=== PATIENT | female | born 1965 | race Caucasian/White ===

== ENCOUNTER 2020-02-22 20:29 | Observation (INO) | payer OTHER ==
[~2020-02-22] VITALS: Ht 162.6 cm; Wt 74.8 kg
[2020-02-22 20:50] VITALS: BP 129/67
--- NOTE | 2020-02-22 21:01 | NUR ---
PT TAKEN TO BED 11 WITH STEADY GAIT.
--- NOTE | 2020-02-22 21:15 | NUR ---
PT BIB SELF FOR C/O EYE PAIN S/P SYNCOPAL EPISODE 5 HOURS AGO. PT NOTED WITH ECCHYMOSIS AND LAC AROUND R EYE. PT STATES "I PASSES OUT AND I WOKE UP WITH EYE GASH." PT STATES SHE CONTINOUS TO FEEL DIZZY. PERRLA 3MM BRISK. PT STATES SHE WAS GARDENING PRIOR TO SYNCOPE EPISODE. AMBULATORY. AAO X4. HEART SOUNDS S1S2 PRESENT. LUNG SOUNDS CLEAR ALL THROUGHOUT. NO DISTRESS NOTED. +2 RADIAL PULSES ON BUE. CAP REFILL < 3. NEG FAST SCREEN. VSS. A&O X4. DENIES ANY N,V,D. +DIZZINESS, +LIGHTHEADEDNESS. NKDA. PMH: HTN, GALLSTONES, LEFT OVARIAN CYST, ABD HERNIA REPAIR (3 WEEKS AGO).
--- NOTE | 2020-02-22 23:15 | NUR ---
PT TAKEN TO CT VIA W/C.
--- NOTE | 2020-02-22 23:20 | NUR ---
PT RETURNED BACK FROM CT VIA W/C.
[2020-02-22 23:40] LABS: BASOPHILS # (AUTO) 0.1 K/uL (0.00-0.22); EOSINOPHILS # (AUTO) 0.7 K/uL (0-0.4); EOSINOPHILS % (AUTO) 7.1 % (0.0-4.0); HEMATOCRIT 41.4 % (36-48); HEMOGLOBIN 13.9 g/dL (12.0-16.0); LYMPHOCYTES # (AUTO) 3.1 K/uL (2.5-16.5); LYMPHOCYTES % (AUTO) 30.6 % (20.5-51.1); MEAN CORPUSCULAR HEMOGLOBIN 31 pg (27-31); MEAN CORPUSCULAR HGB CONC 34 g/dL (33-37); MEAN CORPUSCULAR VOLUME 91.8 fL (80-94); MONOCYTES # (AUTO) 0.7 K/uL (0.8-1.0); MONOCYTES % (AUTO) 7.1 % (1.7-9.3); NEUTROPHILS # (AUTO) 5.6 K/uL (1.8-7.7); NEUTROPHILS % (AUTO) 54.2 % (42.2-75.2); PLATELET COUNT (AUTO) 393 K/uL (140-450); RED BLOOD CELL COUNT(AUTO) 4.51 MIL/uL (4.20-5.40); RED CELL DISTRIBUTION WIDTH 13.8 % (11.6-13.7); WHITE BLOOD COUNT (AUTO) 10.3 K/uL (4.8-10.8)
[2020-02-23] LABS: ALBUMIN 3.9 g/dL (3.4-5.0); ANION GAP 12.6 (8-16); CARBON DIOXIDE 28.6 mmol/L (21-32); CREATININE 1.2 mg/dL (0.6-1.3); TOTAL BILIRUBIN 0.3 mg/dL (0.0-1.0)
[2020-02-23 00:02] LABS: POTASSIUM 2.2 mmol/L (3.5-5.1)
--- NOTE | 2020-02-23 00:02 | NUR ---
lab called for critical lab value: k+ level 2.2 sowmya hurt made aware.
[2020-02-23] MEDS ORDERED: POTASSIUM CHL 40 MEQ/ D5-1/2NS 1,000 ML IV ONE (00:05)
[2020-02-23] MEDS ORDERED: POTASSIUM CHLORIDE 10 MEQ TABER PO ONE ×2 (00:10→02:05)
[2020-02-23] MEDS ORDERED: KCL 20 MEQ/WATER INJ PREMIX 100 ML IV ONE (00:10)
--- NOTE | 2020-02-23 00:13 | NUR ---
DAUGHTER ANNETTE PONCE CALLED FOR PATIENT UPDATE [phone]
[2020-02-23] MEDS ORDERED: BUPR-10 PO (01:02)
[2020-02-23] MEDS ORDERED: HYDR-133 PO (01:02)
[2020-02-23] MEDS ORDERED: QUET300T1 PO (01:02)
[2020-02-23] MEDS ORDERED: HYDROcodone/APAP 10/325 MG 1 TAB TAB PO STA (01:25)
--- NOTE | 2020-02-23 01:25 | NUR ---
PT STARTED COMPLAININTG ABOUT BURNING OAT IV SITE. NO EXTRAVASATION OR INFILTRATION NOTED. K RATE LOWER TO 25ML/HR.
--- NOTE | 2020-02-23 01:29 | NUR ---
APPLIED DERMABOND TO PT'S RIGHT EYEBROW AND UPPER CHECK ON PT'S FACE WITHOUT INCIDENT.
--- NOTE | 2020-02-23 02:20 | NUR ---
PT UNABLE TO TOLERATE POTASSIUM EVEN AFTER RATE OF MED HAS BEEN DECREASED. ARTEMIO MEADOWS AWARE. NEW ORDERS: CHANGED POTASSIUM RIDER TO PO ROUTE; K DUR 40MEQ PO
--- NOTE | 2020-02-23 02:20 | NUR ---
URINE COLLECTED AND SENT TO LAB.
[2020-02-23 02:32] LABS: APPEARANCE,URINE CLEAR (CLEAR); BILIRUBIN,URINE NEGATIVE (NEGATIVE); BLOOD, URINE NEGATIVE (NEGATIVE); COLOR,URINE YELLOW (YELLOW); LEUKOCYTE ESTERASE ,URINE 2+ (NEGATIVE); NITRITE, URINE NEGATIVE (NEGATIVE); UGLUCOSE NEGATIVE (NEGATIVE)
[2020-02-23 02:47] LABS: RBC,URINE 0-5 /HPF (0-5)
[2020-02-23 02:48] LABS: WBC,URINE 20-60 /HPF (0-5)
--- NOTE | 2020-02-23 02:51 | NUR ---
CRITICAL LAB VALUE REPORTING. K: 2.2, ARTEMIO HOLBROOK MADE AWARE.
--- NOTE | 2020-02-23 03:58 | NUR ---
PT SLEEPING COMFORTABLY IN BED. EQUAL CHEST RISE AND FALL. NO DISTRESS NOTED. SIDE RAILS UP X 1.
--- NOTE | 2020-02-23 06:00 | NUR ---
PT SLEEPING COMFORTABLY IN BED. EQUAL CHEST RISE AND FALL. NO DISTRESS NOTED. SIDE RAILS UP X 1.
--- NOTE | 2020-02-23 06:50 | NUR ---
PATIENT HAS BEEN SCREENED AND CATEGORIZED MODERATE NUTRITION RISK. PATIENT WILL BE SEEN WITHIN 3-5 DAYS OF ADMISSION. 02/25/20-02/28/20 GURWINDER ASIF MS, RDN
--- NOTE | 2020-02-23 07:14 | NUR ---
Pt report given to AMISHA SHEPHERD. Transfer of care at this time.
--- NOTE | 2020-02-23 07:16 | NUR ---
RECEIVED REPORT FROM AMISHA MENENDEZ. TRANSFER OF CARE AT THIS TIME
--- NOTE | 2020-02-23 08:54 | NUR ---
RESTING IN BED WITH EYES CLOSED, PT AROUSABLE TO NAME. VSS. WILL CONTINUE TO MONITOR
--- NOTE | 2020-02-23 10:28 | NUR ---
PT AWAKE IN BED ON PHONE SPEAKING TO DAUGHTER. NO COMPLAINTS AT THIS TIME. WILL CONTINUE TO MONITOR
--- NOTE | 2020-02-23 11:43 | NUR ---
Dr. Francisco is evaluating the patient at bedside.
[2020-02-23] MEDS ORDERED: MORPHINE SULFATE 2 MG/ML SYR IVP PRN (11:55)
[2020-02-23] MEDS ORDERED: CLONIDINE HYDROCHLORIDE 0.1 MG TAB PO PRN (11:55)
[2020-02-23] MEDS ORDERED: IPRATROPIUM 0.02% 0.5 MG/2.5 ML NEBU INH PRN (11:55)
[2020-02-23] MEDS ORDERED: ZOLPIDEM 5 MG TAB PO PRN (11:55)
[2020-02-23] MEDS ORDERED: ALBUTEROL 0.083% 2.5 MG/3 ML NEBU INH PRN (11:55)
[2020-02-23] MEDS ORDERED: HYDROcodone/APAP 5/325 MG 1 TAB TAB PO PRN (11:55)
[2020-02-23] MEDS ORDERED: DOCUSATE SODIUM 250 MG GELCAP PO PRN (11:55)
[2020-02-23] MEDS ORDERED: ALUMINUM HYD/MAG/SIMETHICONE 30 ML UDC PO PRN (11:55)
[2020-02-23] MEDS ORDERED: bisacodyL 10 MG SUPP RC PRN (11:55)
[2020-02-23] MEDS ORDERED: MAG SULF 2000 MG/WATER PREMIX 50 ML IV PRN (11:55)
[2020-02-23] MEDS ORDERED: diphenhydrAMINE 50 MG/ML VIAL IVP PRN (11:55)
[2020-02-23] MEDS ORDERED: guaiFENesin DM 200/20 MG-10 ML 10 ML UDC PO PRN (11:55)
[2020-02-23] MEDS ORDERED: ACETAMINOPHEN 650 MG SUPP RC PRN (11:55)
[2020-02-23] MEDS ORDERED: ACETAMINOPHEN 325 MG TAB PO PRN (11:55)
[2020-02-23] MEDS ORDERED: ONDANSETRON 4 MG/2 ML VIAL IVP PRN (11:55)
[2020-02-23] MEDS ORDERED: LORazepam 2 MG/ML VIAL IVP PRN (11:55)
[2020-02-23] MEDS ORDERED: POTASSIUM CHLORIDE 10 MEQ TABER PO PRN (11:55)
[2020-02-23] MEDS ORDERED: MAGNESIUM OXIDE 400 MG TAB PO PRN (11:55)
[2020-02-23] MEDS ORDERED: SODIUM PHOSPHATE 118 ML ENEM RC PRN (11:55)
[2020-02-23] MEDS ORDERED: cefTRIAXone 1,000 MG VIAL ONE (12:02)
[2020-02-23] MEDS: HYDROcodone/APAP 5/325 MG 1 TAB TAB PO PRN ×2 (12:13→19:09)
--- NOTE | 2020-02-23 12:15 | NUR ---
PT C/O 10/10 PAIN AT THIS TIME PO NORCO GIVEN
--- NOTE | 2020-02-23 13:56 | NUR ---
LAB AT BEDSIDE FOR BLOOD DRAW. PT AWAKE AND ALERT. VSS.
[2020-02-23 14:14] LABS: ANION GAP 15.7 (8-16); CARBON DIOXIDE 24.9 mmol/L (21-32)
[2020-02-23 14:22] LABS: POTASSIUM 2.6 mmol/L (3.5-5.1)
--- NOTE | 2020-02-23 14:24 | NUR ---
POTASSIUM 2.6-- CRITICAL VALUE RECEIVED FROM LAB.
--- NOTE | 2020-02-23 15:51 | NUR ---
RESTING IN BED WITH EYES CLOSED, AROUSABLE TO NAME. POSITIONED FOR COMFORT. VSS. WILL CONTINUE TO MONITOR
[2020-02-23] MEDS: POTASSIUM CHLORIDE 10 MEQ TABER PO SCH ×2 (16:08→20:15)
--- NOTE | 2020-02-23 17:12 | NUR ---
RESTING WITH EYES CLOSED, NO COMPLAINTS AT THIS TIME. VSS.
--- NOTE | 2020-02-23 19:04 | NUR ---
PT C/O 8/10 SHARP/THROBBING PAIN, GRIMICING IN PAIN. PT WILL BE MEDICATED ACCORDINGLY
--- NOTE | 2020-02-23 19:18 | NUR ---
Pt report given to AMISHA TYLER. Transfer of care at this time.
--- NOTE | 2020-02-23 19:20 | NUR ---
REPORT RECIVED FROM CORA LION. CONTINUATION OF CARE.
--- NOTE | 2020-02-23 21:39 | NUR ---
PT DENIES PAIN AT THIS TIME. PT AA0 X4. RESPIRATIONS ARE EVEN AND UNLABORED. SKIN IS WAARM AND DRY TO TOUCH. PT REMAINS ON APPRENTICE PHOTOGRAPHER. BED IS LOCKED AND IN LOWEST POSITION.
--- NOTE | 2020-02-23 22:16 | NUR ---
PT AAO X4. RESPIRATIONS ARE EVEN AND UNLABORED. SKIN IS WARM AND DRY TO TOUCH. PT REMAINS ON KRAFT DIGESTER OPERATOR. VSS. PT DENIES PAIN AT THIS TIME. BED IS LOCKED AND IN LOWEST POSITION. ALL NEEDS ARE MET AT THIS TIME.
[2020-02-24] MEDS: POTASSIUM CHLORIDE 10 MEQ TABER PO SCH (00:15)
--- NOTE | 2020-02-24 00:15 | NUR ---
K DUR 40 MEQ GIVEN PO. PT ABLE TO SWLLOW MEDICATIONS WITHOUT DIFFICULTY. PT REMAINS ON WATER POLLUTION CONTROL TECHNICIAN. VSS. PT DENIES PAIN AT THIS TIME. BED IS LOCKED AND IN LOWEST POSITION.
--- NOTE | 2020-02-24 01:25 | NUR ---
ABLE TO AMBULATE TO RESTROOM WITH STEADY GAIT. PT RESPONSIVE TO VERBAL STIMULI. PT AAO X4. RESPIRATIONS ARE EVEN AND UNLABORED. SKIN IS WARM AND DRY TO TOUCH. PT DENIES PAIN AT THIS TIME. ALL NEEDS MET AT THIS TIME. BED IS LOCKED AND IN LOWEST POSITION. PT REMAINS ON CARDIAC MONTIOR.
--- NOTE | 2020-02-24 03:00 | NUR ---
PT RESTING IN BED WITH EYES CLOSED. PT RESPONSIVE TO VERBAL STIMULI. PT AAO X4. RESPIRATIONS ARE EVEN AND UNLABORED. SKIN IS WARM AND DRY TO TOUCH. PT DENIES PAIN AT THIS TIME. ALL NEEDS MET AT THIS TIME. BED IS LOCKED AND IN LOWEST POSITION. PT REMAINS ON CARDIAC MONTIOR.
--- NOTE | 2020-02-24 04:45 | NUR ---
PT ABLE TO AMBULATE TO RESTROOM WITH STEADY GAIT.
--- NOTE | 2020-02-24 05:10 | NUR ---
PT HAD C/O 5/10 BACK PAIN. THROBBING AND NON-RADIATING. PT ALSO STATED SHE IS HAVING TROUBLE HAVING A BOWEL MOVEMENT. ABD IS SOFT, ROUND, AND NON-TENDER. BS PRESENT X4 QUANDRANTS. PT GIVEN NORCO 5/325MG 1 TAB FOR MODERATE PAIN AND COLACE 250MG CAP PRN FOR CONSTIPATION. PT ABLE TO SWALLOW PILLS WITHOUT DIFFICULTY.
[2020-02-24] MEDS: HYDROcodone/APAP 5/325 MG 1 TAB TAB PO PRN ×2 (05:13→10:25)
--- NOTE | 2020-02-24 06:50 | NUR ---
PT RESPONSIVE TO VERBAL STIMULI. PT STATES BACK PAIN HAS DECREASED TO 0/10. RESPIRATIONS ARE EVEN AND UNLABORED. SKIN IS WARM AND DRY TO TOUCH. PT REMAINS ON FERTILIZER PROCESSING SUPERVISOR. PT VSS.
--- NOTE | 2020-02-24 07:10 | NUR ---
Patient will be admitted to care of . Admited to TELE. Will go to room 111B. Belongings list completed. Report to HIREN LION.
--- NOTE | 2020-02-24 08:38 | NUR ---
SITTING UPRIGHT IN BED EATING BREAKFAST. DENIES PAIN AT THIS TIME.
[2020-02-24 08:45] LABS: ANION GAP 16.1 (8-16); CARBON DIOXIDE 23.4 mmol/L (21-32); POTASSIUM 3.5 mmol/L (3.5-5.1)
[2020-02-24 10:22] VITALS: BP 96/59
--- NOTE | 2020-02-24 11:14 | NUR ---
DAUGHTER EMILY CALLED FOR PATIENT ASSURANCE SENIOR MANAGER INSURANCE, DAUGHTER EN ROUTE TO ASSURANCE SENIOR MANAGER INSURANCE PT. PHONE: [phone]
--- NOTE | 2020-02-24 11:18 | NUR ---
REVIEWED DISCHARGE PAPERWORK WITH PT AND SHE VERBALIZES UNDERSTANDING. IV REMOVED FROM RT WRIST AND 2X2 GAUZE PLACED. PT DISCHARGED WITH VITAL SIGNS STABLE. PT DISCHARGED TO DAUGHTER IN LOBBY.
--- NOTE | 2020-02-25 11:11 | NUR ---
SCHEDULED PATIENT A FOLLOW UP APPOINTMENT WITH PCP ON February AT 9:[address] APPOINTMENT REMINDER IN PATIENTS CHART AND NOTIFY RN.
--- NOTE | 2020-02-25 15:22 | NUR ---
MOID MIDDLE SCHOOL TEACHER NOTE: SW CONTACTED ASSISTANT FITNESS MANAGER, WHO STATED THAT PATIENT WAS DISCHARGED.
== END 2020-02-24 11:18 | disposition home or self-care (01) ==
LOC: MED 20:29 → MMU 02-23 00:52 → MTU 02-24 06:02 → MMU 02-24 08:35
PROVIDERS: ADMIT Internal Medicine; ATTEND Internal Medicine
DX: R55 Syncope and collapse (principal); E87.6 Hypokalemia; N39.0 Urinary tract infection, site not specified; S00.11XA Contusion of right eyelid and periocular area, initial encounter; I10 Essential (primary) hypertension; G89.29 Other chronic pain; M54.9 Dorsalgia, unspecified; Z90.710 Acquired absence of both cervix and uterus; Z79.899 Other long term (current) drug therapy; W18.39XA Other fall on same level, initial encounter; Y93.89 Activity, other specified; Y92.89 Other specified places as the place of occurrence of the external cause
CPT/HCPCS: 36415; 70450; 71045; 80048; 80053; 81001; 83735; 84132; 84484; 85025; 87086; 93005; 94760; 96365; 96366; 96367; 99291; G0378; G0482; J0696; J3480; Q0092; 96361; J7060